=== PATIENT | female | born 1965 | race American Indian/Alaskan Native ===

== ENCOUNTER 2017-05-16 17:29 | Emergency (ER) | payer SELFPAY ==
[2017-05-16 19:23] LABS: Eosinophils % (Auto) 2.2 % (0.0-4.3); Hematocrit 37.3 % (30.3-42.9); Hemoglobin 12.8 gm/dl (10.1-14.3); Mean Corpuscular HGB Conc 34 % (30-34); Mean Corpuscular Hemoglobin 33 pg (28-32); Mean Corpuscular Volume 97 fl (79-97); Platelet Count 248 K/mm3 (140-440); Red Blood Count 3.83 M/mm3 (3.65-5.03); Red Cell Distribution Width 15.1 % (13.2-15.2); White Blood Count 5.2 K/mm3 (4.5-11.0)
[2017-05-16 20:35] LABS: Bilirubin,Urine NEG (Negative); Blood,Urine LG (Negative); Ketones,Urine TR mg/dL (Negative); Leukocyte Esterase,Urine NEG (Negative); Mucus,Urine FEW /HPF; Nitrite,Urine NEG (Negative); Urobilinogen,Urine < 2.0 mg/dL (<2.0)
[2017-05-16 20:38] LABS: RBC,Urine > 182.0 /HPF (0.0-6.0)
--- NOTE | 2017-05-17 00:40 | Emergency Department Report ---
HPI - General Chief Complaint: Vaginal Bleeding Time Seen by Provider: 05/17/17 00:19 - HPI HPI: Room 8 Patient is a 52-year-old female presented with a chief complaint of vaginal bleeding. Patient states her symptoms began 3 days ago with heavy vaginal bleeding. The patient states she has had to use diapers to contain the bleeding. Patient denies pelvic pain but admits to lightheadedness at times. The patient is postmenopausal with her last menses occurring approximately 2 years ago Location: [see above] Duration: 3 days Quality: Painless Severity: Heavy Modifying factors: [see above] Context: [see above] Mode of transportation: [not driving] ED Past Medical Hx - Past Medical History Previous Medical History?: No - Surgical History Additional Surgical History: Left ankle surgery, - Family History Family history: no significant - Social History Smoking Status: Current Some Day Smoker Substance Use Type: None (denies illicit drug use), Alcohol (occasional) - Medications Home Medications: Home Medications Medication Instructions Recorded Confirmed Last Taken Type Diclofenac Dr [Voltarejatin Dr] 75 mg PO Q12H #60 tablet 06/18/14 Unknown Rx HYDROcodone/APAP 5-325 [[place] 1 each PO Q6HR PRN #16 tablet 06/18/14 Unknown Rx 5-325 mg TAB] medroxyPROGESTERone ACETATE 10 mg PO QDAY #10 tablet 05/17/17 Unknown Rx [Provera] ED Review of Systems ROS: Stated complaint: VAGINAL BLEEDING Other details as noted in HPI Comment: All other systems reviewed and negative Constitutional: denies: chills, fever Eyes: denies: eye pain, eye discharge, vision change ENT: denies: ear pain, throat pain Respiratory: denies: cough, shortness of breath, wheezing Cardiovascular: denies: chest pain, palpitations Endocrine: no symptoms reported Genitourinary: abnormal menses. denies: urgency, dysuria, discharge Musculoskeletal: denies: back pain, joint swelling, arthralgia Skin: denies: rash, lesions Neurological: denies: headache, weakness, paresthesias Psychiatric: denies: anxiety, depression Hematological/Lymphatic: denies: easy bleeding, easy bruising Physical Exam - Physical Exam Vital Signs: Vital Signs 05/16/17 18:09 Temperature 98.9 F Pulse Rate 95 H Blood Pressure 140/94 O2 Sat by Pulse 100 Oximetry Physical Exam: GENERAL: The patient is well-developed well-nourished female lying on a stretcher not appearing to be in acute distress. [] HEENT: Normocephalic. Atraumatic. Extraocular motions are intact. Patient has moist mucous membranes. NECK: Supple. Trachea midline CHEST/LUNGS: Clear to auscultation. There is no respiratory distress noted. HEART/CARDIOVASCULAR: Regular. There is no tachycardia. There is no gallop rub or murmur. ABDOMEN: Abdomen is soft, nontender. Patient has normal bowel sounds. There is no abdominal distention. SKIN: There is no rash. There is no edema. There is no diaphoresis. NEURO: The patient is awake, alert, and oriented. The patient is cooperative. The patient has normal speech MUSCULOSKELETAL: There is no evidence of acute injury. PELVIC: Small to moderate amount of blood in the vault. No brisk bleeding visualized ED Course Vital Signs 05/16/17 18:09 Temperature 98.9 F Pulse Rate 95 H Blood Pressure 140/94 O2 Sat by Pulse 100 Oximetry ED Medical Decision Making - Lab Data Result diagrams: 05/16/17 18:35 Laboratory Tests 05/16/17 05/16/17 05/16/17 18:35 18:35 20:15 WBC 5.2 RBC 3.83 Hgb 12.8 Hct 37.3 MCV 97 MCH 33 H MCHC 34 RDW 15.1 Plt Count 248 Lymph % (Auto) 33.6 [place] % (Auto) 7.8 H Eos % (Auto) 2.2 Baso % (Auto) 1.0 Lymph # 1.7 [place] # 0.4 Eos # 0.1 Baso # 0.1 Seg Neutrophils % 55.4 Seg Neutrophils # 2.9 HCG, Quant < 2 Urine Color Yellow Urine Turbidity Clear Urine pH 5.0 Ur Specific [place] 1.026 Urine Protein 100 mg/dl Urine Glucose (UA) Neg Urine Ketones Tr Urine Blood Lg Urine Nitrite Neg Urine Bilirubin Neg Urine Urobilinogen < 2.0 Ur Leukocyte Esterase Neg Urine WBC (Auto) 1.0 Urine RBC (Auto) > 182.0 U Epithel Cells (Auto) < 1.0 Urine Mucus Few - Differential Diagnosis postmenopausal bleeding, uterine cancer, uterine fibroids Critical care attestation.: If time is entered above; I have spent that time in minutes in the direct care of this critically ill patient, excluding procedure time. ED Disposition Clinical Impression: Postmenopausal vaginal bleeding Disposition: DC-01 TO HOME OR SELFCARE Is pt being admited?: No Does the pt Need Aspirin: No Condition: Stable Instructions: Dysfunctional Uterine Bleeding (ED), Menorrhagia (ED) Additional Instructions: Return to the emergency department immediately should you develop worsening symptoms, fever, inability to tolerate food or liquid or any other concerns. Prescriptions: medroxyPROGESTERone ACETATE [Provera] 10 mg PO QDAY #10 tablet Referrals: NELLA MIRANDA MD [Staff Physician] - [facility] (Dr. Miranda is an [employer]. Please follow up with him for further evaluation) Time of Disposition: 02:45
--- NOTE | 2017-05-17 01:58 | Ultrasound Report ---
FINAL REPORT EXAM: US PELVIC COMPLETE, US TRANSVAGINAL. HISTORY: Vaginal bleeding. TECHNIQUE: Directed transabdominal and transvaginal ultrasound examination of the pelvis was performed. After initial transabdominal images, transvaginal imaging was performed for better visualization of the uterus and adnexa. No prior studies are available for comparison. FINDINGS: The uterus is anteverted, and measures 5.2 x 4.6 x 9.0 cm. There is 1.0 x 1.0 x 1.1 cm region of hypoechogenicity in the anterior lower uterine segment, which may represent focal scar (such as from prior ), or possibly mass lesion (such as fibroid). Correlation with surgical history is recommended. The endometrium measures 7 mm, mildly thickened for patient's age (with normal upper limits of 5 mm for postmenopausal patients not on hormonal replacement therapy). The right ovary measures 2.7 x 1.9 x 2.5 cm, and is normal in appearance. The left ovary is not distinctly visualized. No other adnexal mass is seen. There is no significant pelvic free fluid. IMPRESSION: 1. Mildly thickened endometrial stripe complex, measuring 7 mm. In this postmenopausal patient with abnormal vaginal bleeding, endometrial tissue sampling is suggested. 2. 1.0 x 1.0 x 1.1 cm region of hypoechogenicity in the anterior lower in segment, representing focal scar or possibly mass lesion (such as fibroid). Correlation with surgical history is recommended. 3. Nonvisualization of the left ovary.
[2017-05-17 02:45] VITALS: BP 154/67
== END 2017-05-17 03:35 | disposition home or self-care (01) ==
LOC: ED 17:29
DX: N93.9 Abnormal uterine and vaginal bleeding, unspecified (principal); F17.210 Nicotine dependence, cigarettes, uncomplicated
CPT/HCPCS: 36415; 76830; 76856; 81001; 84702; 85025; 99284